=== PATIENT | female | born 1965 | race Caucasian/White ===

== ENCOUNTER 2018-10-17 13:51 | Emergency (ER) | payer BC ==
[2018-10-17 15:31] VITALS: BP 177/105
--- NOTE | 2018-10-17 15:37 | EDPHY ---
H & P Stated Complaint: hit head three times last night vs fall walking home post etoh ingestion Time Seen by Provider: 10/17/18 14:02 HPI/ROS: 53 yo F states she was at a friends house drinking wine last night and then decided to walk home, she states she fell several times while walking home and did not notice until this morning that she had large scalp swelling and was feeling very dizzy. She denies loc, but admits she had been drinking heavily. She denies neck pain, numbness or tingling in extremities. Review of systems As per HPI General no fever no chills no weakness HEENT no eye pain no eye discharge. No eye redness, no sore throat Respiratory no cough, no shortness of breath Cardiac no chest pain, no peripheral edema GI no abdominal pain, no diarrhea, no constipation, no nausea, no vomiting no flank pain, no hematuria, no dysuria Musculoskeletal no myalgias, no joint pain Heme no easy bruising, no easy bleeding Endo no polyuria, no polydipsia Skin no rashes, no pruritus Neuro no syncope, positive headaches positive dizziness Psych is no suicidal ideation, no homicidal ideation Source: Patient Exam Limitations: No limitations - Personal History LMP (Females 10-55): Hysterectomy Current Tetanus Diphtheria and Acellular Pertussis (TDAP): Yes Tetanus Vaccine Date: unsuree - Medical/Surgical History Hx Asthma: No Hx Chronic Respiratory Disease: No Hx Diabetes: No Hx Cardiac Disease: No Hx Renal Disease: No Hx Cirrhosis: No Hx Alcoholism: No Hx HIV/AIDS: No Hx Splenectomy or Spleen Trauma: No Other PMH: hysterectomy - Social History Smoking Status: Never smoked Alcohol Use: Heavy Drug Use: None - Physical Exam Exam: 53 yo F alert and oriented in nad non toxic appearance large occipital scalp hematoma, no battles, no raccoons, no hemotympanum face ecchymoses just lateral to right orbit right zygoma ttp eomi neck supple , no midline tenderness lungs cta bilat heart rrr abd nabs soft nt ext no cce neuro alert and oriented cn intact, gait intact, motor 5/5 bilat, no sensory deficit no pronator drift Constitutional: Initial Vital Signs Temperature (C) 36.7 C 10/17/18 13:55 Heart Rate 82 10/17/18 13:55 Respiratory Rate 16 10/17/18 13:55 Blood Pressure 173/119 H 10/17/18 13:55 O2 Sat (%) 99 10/17/18 13:55 O2 Delivery Mode Room Air Allergies/Adverse Reactions: No Known Allergies Allergy (Unverified 10/17/18 14:13) Home Medications: Medication Instructions Recorded NK [No Known Home Meds] 10/17/18 Medical Decision Making - Diagnostics Imaging Results: Imaging Impressions Head CT 10/17/18 14:33 Impression: 1. Tiny subarachnoid hemorrhage along the high right frontal lobe. 2. No subdural hematoma or shift. 3. Large posterior midline scalp hematoma at the vertex. 4. No acute fracture. Findings discussed with emergency department physician, Nichelle Wen MD on October 17, 2018 at 3:14 p.m. ED Course/Re-evaluation: Pt seen and evaluated for head injury ct head-pos scalp hematoma small right frontal subarrachnoid no facial fractures I contacted the neurosurgeon international organizer at [facility], Dr Hernandez , she stated the patient could be discharged and follow up with primary care. Imp/Plan Scalp Hematoma Concussion Small Subarrachnoid Pt given extensive education on concussion, and reasons to return. Differential Diagnosis: Differential diagnosis considered but not limited to: Scalp contusion, scalp hematoma, intracranial bleed, subarachnoid hemorrhage, subdural, epidural Departure - Departure Disposition: Home, Routine, Self-Care Clinical Impression: Scalp hematoma, Subarachnoid bleed Condition: Good Instructions: Concussion (ED), Subarachnoid Hemorrhage (DC), Scalp Contusion in Adults (ED), Hematoma (ED) Additional Instructions: I have discussed your case with Dr Hernandez, the neurosurgeon international organizer at [facility]. She recommends follow up with your primary next week. She also recommends if you have any worsening of symptoms to go back to the ED immediately. Referrals: [facility] [Primary Care Provider] - As per Instructions
== END 2018-10-17 15:56 | disposition home or self-care (01) ==
LOC: CED 13:51
DX: S00.03XA Contusion of scalp, initial encounter (principal); S06.6X0A Traumatic subarachnoid hemorrhage without loss of consciousness, initial encounter; F10.920 Alcohol use, unspecified with intoxication, uncomplicated; W19.XXXA Unspecified fall, initial encounter; Y92.480 Sidewalk as the place of occurrence of the external cause
CPT/HCPCS: 70450-PO